=== PATIENT | female | born 1980 | race Caucasian/White ===

== ENCOUNTER 2018-12-20 18:44 | Outpatient (CLI) | payer MEDICAID ==
[2018-12-20 21:15] LABS: ADD UMIC YES; UR ASCORBIC ACID NEGATIVE (NEGATIVE); UR BACTERIA FEW /HPF (NONE SEEN); UR BILIRUBIN (Dip) NEGATIVE (NEGATIVE); UR BLOOD (Dip) NEGATIVE (NEGATIVE); UR CLARITY CLEAR (CLEAR); UR COLOR STRAW (YELLOW); UR GLUCOSE (Dip) NEGATIVE (NEGATIVE); UR KETONES (Dip) NEGATIVE (NEGATIVE); UR LEUKOCYTE ESTERASE (Dip) TRACE Leu/ul (NEGATIVE); UR NITRITE (Dip) NEGATIVE (NEGATIVE); UR RBC 0 /HPF (0-5); UR SPECIFIC GRAVITY (Dip) 1.006 (1.003-1.030); UR SQUAMOUS EPITHELIAL CELL FEW /HPF (FEW); UR TOTAL PROTEIN (Dip) NEGATIVE (NEGATIVE); UR UROBILINOGEN (Dip) NEGATIVE (NEGATIVE); UR WBC 2 /HPF (0-5)
[2018-12-20] MEDS: TERBUTALINE 1 MG/ML INJ SC (23:06)
[2018-12-20] MEDS: LACTATED RINGER'S 1,000 ML IV ×2 (23:12→23:49)
[2018-12-21] MEDS: TERBUTALINE 1 MG/ML INJ SC (01:10)
== END 2018-12-21 02:20 | disposition home or self-care (01) ==
LOC: OBT 18:44 → L-D 18:46
DX: O26.893 Other specified pregnancy related conditions, third trimester (principal); R10.2 Pelvic and perineal pain; O09.523 Supervision of elderly multigravida, third trimester; Z3A.35 35 weeks gestation of pregnancy
CPT/HCPCS: 36415; 76818; 81001; 87086; 96360; 96361

== ENCOUNTER 2019-01-27 13:03 | Inpatient (IN) | payer MEDICAID ==
[2019-01-27] MEDS ORDERED: BUTORPHANOL 2 MG INJ IV (13:30)
[2019-01-27] MEDS ORDERED: CARBOPROST 250 MCG INJ IM ×2 (13:30→23:00)
[2019-01-27] MEDS ORDERED: METHYLERGONOVINE 0.2 MG INJ IM ×2 (13:30→23:00)
[2019-01-27] MEDS ORDERED: OXYTOCIN 30 UNITS/LR 500 ML IV ×2 (13:30→23:00)
[2019-01-27] MEDS ORDERED: LIDOCAINE 1% (MPF) 30 ML INJ INJ (13:30)
[2019-01-27] MEDS ORDERED: MISOPROSTOL 200 MCG TAB PR ×2 (13:30→23:00)
[2019-01-27 14:28] LABS: ADD MAN DIFF? NO
[2019-01-27 14:30] LABS: BASOPHILS % 0.2 % (0.0-2.0); EOSINOPHILS % 0.3 % (0.0-7.0); HEMATOCRIT 38.3 % (37.0-47.0); HEMOGLOBIN 12.5 g/dl (12.0-16.0); LYMPHOCYTES # 1.5 10^3/ul (0.8-2.9); LYMPHOCYTES % 15.6 % (15.0-51.0); MEAN CORPUSCULAR HEMOGLOBIN 30.9 pg (29.0-33.0); MEAN CORPUSCULAR HGB CONC 32.6 g/dl (32.0-37.0); MEAN CORPUSCULAR VOLUME 94.8 fl (82.0-101.0); MEAN PLATELET VOLUME 10.9 fl (7.4-10.4); MONOCYTE # 0.7 10^3/ul (0.3-0.9); MONOCYTES % 7.2 % (0.0-11.0); NEUTROPHIL # 7.1 10^3/ul (1.6-7.5); NEUTROPHILS % 76.2 % (39.0-77.0); PLATELET COUNT 173 10^3/UL (140-415); RED BLOOD COUNT 4.04 10^6/ul (4.20-5.40); RED CELL DISTRIBUTION WIDTH 15.7 % (11.5-14.5)
[2019-01-27 14:30] LABS: WHITE BLOOD COUNT 9.3 10^3/ul (4.8-10.8)
[2019-01-27] MEDS: LACTATED RINGER'S 1,000 ML IV ×2 (14:38→16:32)
[2019-01-27 14:45] LABS: PARTIAL THROMBOPLASTIN TIME 27.6 Sec (23.0-35.0); PROTIME 11.2 Sec (11.9-14.9); PT RATIO 0.9
[2019-01-27] MEDS: AMPICILLIN 2 GM/NS (PMX) 100 ML IV (14:50)
[2019-01-27] MEDS: BUTORPHANOL 2 MG INJ IV ×2 (16:08)
[2019-01-27] MEDS: AMPICILLIN 1 GM/NS (PMX) 50 ML IV (18:25)
[2019-01-27 18:42] LABS: RAPID PLASMA REAGIN NONREACTIVE (NR)
[2019-01-27] MEDS: OXYTOCIN 30 UNITS/LR 500 ML IV ×2 (20:37→21:08)
[2019-01-27 20:51] LABS: HEPATITIS B SURFACE ANTIGEN NEGATIVE (NEGATIVE)
[2019-01-27] MEDS ORDERED: OXYCODONE/ASPIRIN (4.88/325) TAB PO ×2 (23:00)
[2019-01-27] MEDS ORDERED: WITCH HAZEL/GLYCERIN PAD PR (23:00)
[2019-01-27] MEDS ORDERED: ZOLPIDEM 5 MG TAB PO (23:00)
[2019-01-27] MEDS ORDERED: LANOLIN HPA 1 PKT TOP (23:00)
[2019-01-27] MEDS ORDERED: BENZOCAINE 20% 56 ML SPRAY TOP (23:00)
[2019-01-27] MEDS: IBUPROFEN 600 MG TAB PO (23:16)
[2019-01-28] MEDS: IBUPROFEN 600 MG TAB PO ×3 (05:29→18:29)
[2019-01-28 08:31] LABS: ADD MAN DIFF? NO
[2019-01-28 08:34] LABS: WHITE BLOOD COUNT 12.7 10^3/ul (4.8-10.8)
[2019-01-28 08:34] LABS: BASOPHILS % 0.2 % (0.0-2.0); EOSINOPHILS % 0.2 % (0.0-7.0); HEMATOCRIT 33.9 % (37.0-47.0); LYMPHOCYTES # 1.8 10^3/ul (0.8-2.9); LYMPHOCYTES % 13.8 % (15.0-51.0); MEAN CORPUSCULAR HEMOGLOBIN 31.2 pg (29.0-33.0); MEAN CORPUSCULAR HGB CONC 32.4 g/dl (32.0-37.0); MEAN PLATELET VOLUME 10.9 fl (7.4-10.4); MONOCYTE # 1.1 10^3/ul (0.3-0.9); MONOCYTES % 8.4 % (0.0-11.0); NEUTROPHIL # 9.8 10^3/ul (1.6-7.5); NEUTROPHILS % 76.9 % (39.0-77.0); PLATELET COUNT 149 10^3/UL (140-415); RED BLOOD COUNT 3.53 10^6/ul (4.20-5.40); RED CELL DISTRIBUTION WIDTH 15.9 % (11.5-14.5)
[2019-01-28] MEDS: SENNA/DOCUSATE NA (8.6MG/50MG) TAB PO ×2 (08:45→22:23)
[2019-01-29] MEDS: IBUPROFEN 600 MG TAB PO ×3 (00:04→13:26)
[2019-01-29] MEDS: SENNA/DOCUSATE NA (8.6MG/50MG) TAB PO (08:16)
[2019-01-29] MEDS: DIPHTH/TET/ACEL PERTUSS (ADULT) 0.5 ML VIAL IM* (08:17)
== END 2019-01-29 16:40 | disposition home or self-care (01) | DRG 807 ==
LOC: OBT 13:03 → L-D 13:04 → OBT 13:20 → L-D 13:20 → PP1 22:25
PROVIDERS: Obstetrics & Gynecology
PROC: 10E0XZZ Delivery of Products of Conception, External Approach (ICD-10-PCS; principal; 2019-01-27)
PROC: 0UQGXZZ Repair Vagina, External Approach (ICD-10-PCS; 2019-01-27)
DX: O99.824 Streptococcus B carrier state complicating childbirth (principal); O71.4 Obstetric high vaginal laceration alone; O69.1XX0 Labor and delivery complicated by cord around neck, with compression, not applicable or unspecified; Z3A.40 40 weeks gestation of pregnancy; Z37.0 Single live birth
CPT/HCPCS: 76815; 85025; 85610; 85730; 86592; 86850; 86900; 86901; 87340; 90715; 93970; 99464